=== PATIENT | male | born 1955 | race Two or more races ===

== ENCOUNTER 2016-07-26 17:50 | Emergency (ER) | payer MEDICARE, OTHER ==
[~2016-07-26] VITALS: Ht 175.3 cm; Wt 59.0 kg
[2016-07-26] MEDS ORDERED: OXYCODONE W/ ACETAMINOPHEN 5/325MG TABLET PO ONE (21:30)
[2016-07-27 01:54] VITALS: BP 129/72
== END 2016-07-27 01:59 | disposition home or self-care (01) ==
LOC: ER 17:56
DX: G89.4 Chronic pain syndrome (principal); M25.512 Pain in left shoulder; M54.9 Dorsalgia, unspecified; M79.672 Pain in left foot; Z98.890 Other specified postprocedural states; Z88.0 Allergy status to penicillin; E11.9 Type 2 diabetes mellitus without complications; F17.210 Nicotine dependence, cigarettes, uncomplicated; Z59.0 Homelessness; F11.20 Opioid dependence, uncomplicated; F19.20 Other psychoactive substance dependence, uncomplicated; Z76.0 Encounter for issue of repeat prescription

== ENCOUNTER 2016-08-02 22:03 | Emergency (ER) | payer MEDICARE, OTHER ==
[~2016-08-02] VITALS: Ht 172.7 cm; Wt 63.5 kg
[2016-08-03 08:20] VITALS: BP 129/87
[2016-08-03] MEDS ORDERED: MEPERIDINE HCL (50 MG/ML) 1 ML VIAL IM ONE (08:45)
[2016-08-03] MEDS ORDERED: PROMETHAZINE HCL 25 MG/ML 1ML IM ONE (08:45)
== END 2016-08-03 09:11 | disposition home or self-care (01) ==
LOC: ER 22:05
DX: G89.4 Chronic pain syndrome (principal); M25.512 Pain in left shoulder; Z88.0 Allergy status to penicillin; E11.9 Type 2 diabetes mellitus without complications; F17.210 Nicotine dependence, cigarettes, uncomplicated; F41.9 Anxiety disorder, unspecified; Z76.0 Encounter for issue of repeat prescription
CPT/HCPCS: 73030; 73060; 96372; 99284; J2175; J2550